=== PATIENT | female | born 1930 | race Caucasian/White ===

== ENCOUNTER 2016-08-10 11:58 | Emergency (ER) | payer MEDICARE, MEDICAID ==
[~2016-08-10] VITALS: Ht 162.6 cm; Wt 66.2 kg
[~2016-08-10 11:58] MED LIST: ACHD5005 PO; ALPR.25T; ASP81TEC PO; CEPH500C PO; CLC200NA2; CLD600T PO; CNC1KV; CTLP20T PO; DNPZ10T; E400C; IBUP-792 PO; LVT.025T PO; MAGN-47 PO; MEMA10TA PO; MULT1TAB63; NF-VITD400; OMG1KC; PEG250PW; SENN1TAB76 PO; TRIM100T7 PO; [UNRECOGNIZED DRUG - OTHER]
[2016-08-10] MEDS ORDERED: NS IV 500 ML 500 ML IV ONE (12:27)
[2016-08-10 13:00] LABS: BASOPHILS # (AUTO) 0.1 10^3/uL (0.0-0.1); BASOPHILS % (AUTO) 1 % (0-10); EOSINOPHILS # (AUTO) 0.1 10^3/uL (0.0-0.3); EOSINOPHILS % (AUTO) 1 % (0-10); LYMPHOCYTES # (AUTO) 2.5 X 10^3 (1.0-4.0); LYMPHOCYTES % (AUTO) 22 % (12-44); MEAN CORPUSCULAR HEMOGLOBIN 29 PG (25-34); MEAN CORPUSCULAR HGB CONC 31 G/DL (32-36); MEAN CORPUSCULAR VOLUME 94 FL (80-99); MONOCYTES # (AUTO) 1.3 X 10^3 (0.0-1.0); MONOCYTES % (AUTO) 11 % (0-12); NEUTROPHILS # (AUTO) 7.8 X 10^3 (1.8-7.8); NEUTROPHILS % (AUTO) 66 % (42-75); PLATELET COUNT 320 10^3/uL (130-400); RED BLOOD COUNT 5.93 10^6/uL (4.35-5.85); RED CELL DISTRIBUTION WIDTH 15.2 % (10.0-14.5); WHITE BLOOD COUNT 11.8 10^3/uL (4.3-11.0)
[2016-08-10 13:01] LABS: KETONES,URINE NEGATIVE (NEGATIVE); LEUKOCYTE ESTERASE ,URINE 3+ (NEGATIVE); NITRITE,URINE NEGATIVE (NEGATIVE); PH,URINE 5 (5-9); PROTEIN,URINE 2+ (NEGATIVE); UROBILINOGEN,URINE 4 MG/DL (NORMAL)
--- NOTE | 2016-08-10 13:03 | Diagnostic Imaging Report ---
Indication: Altered mental status, unresponsive. Discussion: Single portable semiupright view of the chest was obtained, comparison 03/05/2007. Low lung volumes. Elevated right hemidiaphragm is noted. Normal heart size. No focal consolidation, pleural fluid, or pneumothorax. Postoperative changes are again noted within the right axilla. Impression: 1. Negative portable chest. Dictated by: Dictated on workstation # [id number]
--- NOTE | 2016-08-10 13:12 | ED General ---
General Chief Complaint: Dizziness/Syncope Stated Complaint: AMS/UNRESPONSIVE Nursing Triage Note: PT ARRIVED FROM [place] PER STAFF AND W/C. STAFF REPORTS EPISODE OF UNRESPONSIVENESS , PT HAS DEMENTIA AND STAFF STATES BACK TO NORMAL SELF, PT IS NON VERBAL BUT DOES RESPOND TO VOICE AND LT PAIN RESPONSES. PT IS BED BOUND AND REQUIRES ASSISTANCE FOR ALL ADL'S. SON AT BED SIDE Nursing Sepsis Screen: No Definite Risk Source of Information: Patient Exam Limitations: No Limitations History of Present Illness Time Seen by Provider: 12:30 Initial Comments Here from snf with report of being unresponsive today. Patient has significant dementia. Prior to sending over here, patient became more appropriate for her although that still involves significant dementia. Patient does require assistance for all ADLs. No reported fever, vomiting or breathing problems. Staff does report that she has been eating less over the last couple of weeks. Timing/Duration: 1 Week, Getting Worse Severity: Moderate Associated Systoms: No Nausea/Vomiting, No Shortness of Air Allergies and Home Medications Allergies Coded Allergies: No Known Drug Allergies (Verified , 08/14/08) Home Medications Alprazolam 0.25 Mg Tab (Reported) Aspirin 81 Mg Tabec 81 MG PO DAILY (Reported) Calcium Carbonate/Vitamin D3 1 Tab Tablet 1 TAB PO BID (Reported) Cephalexin Monohydrate 500 Mg Capsule 7Days 1 EACH PO QID Prescribed by: PATRICIA LOMAX on 06/24/12 1553 Citalopram Hydrobromide 20 Mg Tab 40 MG PO DAILY (Reported) Cyanocobalamin 1,000 Mcg/Ml Inj (Reported) Donepezil Hcl 10 Mg Tab (Reported) Hydrocodone Bit/Acetaminophen 1 Each Tablet 1-2 EACH PO Q4H PRN PRN (Reported) Ibuprofen 400 Mg Tablet 1 EACH PO QID PRN (Reported) Levothyroxine Sodium 25 Mcg Tablet 75 MCG PO DAILY (Reported) Magnesium Hydroxide 400 Mg/5 Ml Oral.susp 400 MG PO DAILY PRN PRN (Reported) Memantine Hcl 10 Mg Tablet 1 TAB PO BID (Reported) Polyethylene Glycol 1 Ea Pack (Reported) Senna 1 Tab Tablet 2 TAB PO HS (Reported) Trimethoprim 100 Mg Tablet 100 MG PO DAILY (Reported) Vitamin D 400 Iu Tab (Reported) Constitutional: see HPINo chills, No fever Respiratory: no symptoms reported Gastrointestinal: no symptoms reported Other Unable to complete review of systems due to his underlying poor medical condition and advanced dementia. Past Vitriti-Mnieox-Pzczrr Hx Patient Social History Alcohol Use: Denies Use Recreational Drug Use: No Smoking Status: Never a Smoker Recent Foreign Travel: No Contact w/Someone Who Travel: No Recent Infectious Disease Expo: No Recent Hopitalizations: No Physical Abuse Screen: No Sexual Abuse: No Immunizations Up To Date Date of Pneumonia Vaccine: Jun 01, 2007 Date of Influenza Vaccine: May 23, 2016 Surgeries HX Surgeries: Yes (MELANOMA REMOVED FROM HER AEM) Respiratory Hx Respiratory Disorders: No Cardiovascular Hx Cardiac Disorders: No Neurological Hx Neurological Disorders: Yes (SEVERE ALZHEIMERS DISEASE) Reproductive System Hx Reproductive Disorders: No Sexually Transmitted Disease: No Genitourinary Hx Genitourinary Disorders: Yes Gastrointestinal Hx Gastrointestinal Disorders: No Musculoskeletal Hx Musculoskeletal Disorders: Yes Endocrine Hx Endocrine Disorders: Yes HEENT HX ENT Disorders: No Psychosocial Hx Psychiatric Problems: Yes Blood Transfusions Hx Blood Disorders: No Reviewed Nursing Assessment Reviewed/Agree w Nursing PMH: Yes Physical Exam Vital Signs Vital Sign - Last 12Hours 08/10/16 11:58 Temp 97.9 Pulse 115 Resp 18 B/P 124/89 Pulse Ox 92 O2 Delivery Room Air Capillary Refill : Less Than 3 Seconds General Appearance: No Apparent Distress Chronically ill HEENT: PERRL/EOMI Other (dry mucous membranes) Neck: Non Tender Supple Respiratory: Lungs Clear Normal Breath Sounds Cardiovascular: No Murmur Tachycardia Gastrointestinal: Non Tender Soft Extremity: Non Tender No Calf Tenderness Neurologic/Psychiatric: Other (altered mental status that son reports is at baseline.) Skin: Warm/Dry Rash (reported scabies to all exposed surfaces) Progress/Results/Core Measures Results/Orders Lab Results Laboratory Tests Test 08/10/16 12:53 Range/Units Alanine Aminotransferase (ALT/SGPT) 52 0-55 U/L Albumin 4.0 3.2-4.5 G/DL Alkaline Phosphatase 95 40-136 U/L Anion Gap 16 H 5-14 MMOL/L Aspartate Amino Transf (AST/SGOT) 40 H 5-34 U/L BUN/Creatinine Ratio 29 Basophils # (Auto) 0.1 0.0-0.1 10^3/uL Basophils (%) (Auto) 1 0-10 % Blood Urea Nitrogen 43 H 7-18 MG/DL C-Reactive Protein High Sensitivity 1.84 H 0.00-0.50 MG/DL Calcium Level 9.9 8.5-10.1 MG/DL Carbon Dioxide Level 24 21-32 MMOL/L Chloride Level 132 H 98-107 MMOL/L Creatinine 1.50 H 0.60-1.30 MG/DL Eosinophils # (Auto) 0.1 0.0-0.3 10^3/uL Eosinophils (%) (Auto) 1 0-10 % Estimat Glomerular Filtration Rate 33 Glucose Level 117 H 70-105 MG/DL Hematocrit 56 H 35-52 % Hemoglobin 17.2 H 11.5-16.0 G/DL Lymphocytes # (Auto) 2.5 1.0-4.0 X 10^3 Lymphocytes (%) (Auto) 22 12-44 % Mean Corpuscular Hemoglobin 29 25-34 PG Mean Corpuscular Hemoglobin Concent 31 L 32-36 G/DL Mean Corpuscular Volume 94 80-99 FL Mean Platelet Volume 12.0 H 7.4-10.4 FL Monocytes # (Auto) 1.3 H 0.0-1.0 X 10^3 Monocytes (%) (Auto) 11 0-12 % Neutrophils # (Auto) 7.8 1.8-7.8 X 10^3 Neutrophils (%) (Auto) 66 42-75 % Platelet Count 320 130-400 10^3/uL Potassium Level 4.0 3.6-5.0 MMOL/L Red Blood Count 5.93 H 4.35-5.85 10^6/uL Red Cell Distribution Width 15.2 H 10.0-14.5 % Sodium Level 172 *H 135-145 MMOL/L Total Bilirubin 1.0 0.1-1.0 MG/DL Total Protein 7.4 6.4-8.2 G/DL Urine Amorphous Sediment RARE TANIKA URATES H /LPF Urine Bacteria LARGE H /HPF Urine Bilirubin 2+ H NEGATIVE Urine Calcium Oxalate Crystals RARE H /LPF Urine Casts NONE /LPF Urine Clarity VERY CLOUDY H Urine Color MARGARITA H Urine Crystals PRESENT H /LPF Urine Culture Indicated YES Urine Glucose (UA) NEGATIVE NEGATIVE Urine Ketones NEGATIVE NEGATIVE Urine Leukocyte Esterase 3+ H NEGATIVE Urine Mucus LARGE H /LPF Urine Nitrite NEGATIVE NEGATIVE Urine Protein 2+ H NEGATIVE Urine RBC NONE /HPF Urine RBC (Auto) NEGATIVE NEGATIVE Urine Specific [place] 1.025 H 1.016-1.022 Urine Squamous Epithelial Cells 2-5 /HPF Urine Urobilinogen 4 H NORMAL MG/DL Urine WBC 10-25 H /HPF Urine pH 5 5-9 White Blood Count 11.8 H 4.3-11.0 10^3/uL My Orders Orders-PATRICIA LOMAX MD Saline Lock/Iv-Start (08/10/16 12:27) Ns Iv 500 Ml (Sodium Chloride 0.9%) (08/10/16 12:27) Cbc With Automated Diff (08/10/16 12:27) Comprehensive Metabolic Panel (08/10/16 12:27) Hs C Reactive Protein (08/10/16 12:27) Ua Culture If Indicated (08/10/16 12:27) Chest 1 View, Ap/Pa Only (08/10/16 12:27) Urine Culture (08/10/16 12:53) Ceftriaxone Injection (Rocephin Injectio (08/10/16 13:30) Medications Given in ED Current Medications Medications Dose Ordered Sig/Jaylin Route Start Time Stop Time Status Last Admin Dose Admin Sodium Chloride 500 ml @ 0 mls/hr Q0M ONCE IV 08/10/16 12:27 08/10/16 12:28 DC 08/10/16 12:48 500 MLS/HR Vital Signs/I&O Vital Sign - Last 12Hours 08/10/16 11:58 Temp 97.9 Pulse 115 Resp 18 B/P 124/89 Pulse Ox 92 O2 Delivery Room Air Blood Pressure Mean: 101 Progress Note : Progress Note Seen and evaluated. IV, labs, UA and chest x-ray ordered. Normal saline 5 mg bolus ordered. Monitor patient. 1334: Patient noted to have severe hyponatremia and urinary tract infection which is likely related to end of life due to advanced dementia. I did discuss the case with Dr. Carlos and the patient's son. We all agreed that comfort care is indicated due to her advanced dementia state. Dr. Carlos has initiated consult with [facility] and will get that set up at patient's snf. I did discuss with the director of the snf who will assist with Comfort Care concerns as well. Discharge back to snf on comfort care orders per Dr. Carlos. Diagnostic Imaging Diagonstic Imaging: Xray Plain Films/CT/US/NM/MRI: chest Comments VIA [facility]. [place], [place] NAME: STEPH MATA [facility] REC#: [id number] PT STATUS: REG ER : 1930 PHYSICIAN: PATRICIA LOMAX MD ADMIT DATE: 08/10/16/ER Draft Date of Exam:08/10/16 CHEST 1 VIEW, AP/PA ONLY Indication: Altered mental status, unresponsive. Discussion: Single portable semiupright view of the chest was obtained, comparison 03/05/2007. Low lung volumes. Elevated right hemidiaphragm is noted. Normal heart size. No focal consolidation, pleural fluid, or pneumothorax. Postoperative changes are again noted within the right axilla. Impression: 1. Negative portable chest. Dictated on workstation # [id number] Dict: 08/10/16 1301 Trans: 08/10/16 1303 TS [id number] Interpreted by: JENISE SHANKAR MD Electronically signed by: Departure Impression Impression: Primary Impression: Hypernatremia Additional Impressions: UTI (urinary tract infection) Qualified Code: N30.00 - Acute cystitis without hematuria Severe dementia Disposition: HOME, SELF-CARE Condition: Unchanged Departure-Patient Inst. Decision time for Depature: 13:52 Referrals: EMETERIO CARLOS MD (PCP/Family) Primary Care Physician Patient Instructions: Dehydration, Adult (DC), Urinary Tract Infection, Adult ( DC) Add. Discharge Instructions: All discharge instructions reviewed with patient and/or family. Voiced understanding. Patient will be on comfort care with [facility] with orders per Dr. Carlos. PATRICIA LOMAX MD Aug 10, 2016 13:12
[2016-08-10 13:18] LABS: BILIRUBIN,URINE 2+ (NEGATIVE); CALCIUM 9.9 MG/DL (8.5-10.1); CALCIUM OXALATE CRYSTALS,UR RARE /LPF; CREATININE SERUM 1.5 MG/DL (0.60-1.30); TOTAL PROTEIN 7.4 G/DL (6.4-8.2); hs C REACTIVE PROTEIN 1.84 MG/DL (0.00-0.50)
[2016-08-10] MEDS ORDERED: cefTRIAXone INJECTION 1,000 MG in NORMAL SALINE (BAXTER MINI) 50 ML IV ONE (13:30)
[2016-08-10 14:20] VITALS: BP 117/78
== END 2016-08-10 14:20 | disposition home or self-care (01) ==
LOC: EDUNIT# 11:58 → ER 12:00
DX: E87.0 Hyperosmolality and hypernatremia (principal); N39.0 Urinary tract infection, site not specified; F03.90 Unspecified dementia, unspecified severity, without behavioral disturbance, psychotic disturbance, mood disturbance, and anxiety; Z79.82 Long term (current) use of aspirin; Z79.899 Other long term (current) drug therapy
CPT/HCPCS: 36415; 51702; 71010; 80053; 81000; 85025; 86141; 87077; 87088; 87186; 96360